=== PATIENT | male | born 1965 | race Caucasian/White ===

== ENCOUNTER 2017-06-17 10:25 | Day surgery (SDC) | payer BC ==
[~2017-06-17] VITALS: Ht 177.8 cm; Wt 82.6 kg
[~2017-06-17 10:25] MED LIST: GABA300C PO; OXYC-150 PO
[2017-06-17 11:59] LABS: BASOPHILS % (AUTO) 0.2 % (0-1); EOSINOPHILS # (AUTO) 0.3 X10'3 (0-0.9); EOSINOPHILS % (AUTO) 2.2 % (0-6); LYMPHOCYTES # (AUTO) 3.3 X10'3 (1.1-4.8); LYMPHOCYTES % (AUTO) 27.2 % (21-51); MEAN CORPUSCULAR HEMOGLOBIN 30.8 PG (27.0-31.0); MEAN CORPUSCULAR HGB CONC 34.8 % (33.0-36.5); MEAN CORPUSCULAR VOLUME 88.3 FL (78-98); MEAN PLATELET VOLUME 7.6 FL (7.4-10.4); MONOCYTES # (AUTO) 0.6 X10'3 (0-0.9); MONOCYTES % (AUTO) 4.9 % (2-12); NEUTROPHILS # (AUTO) 7.8 X10'3 (1.8-7.7); NEUTROPHILS % (AUTO) 65.5 % (42-75); PRE OP HEMATOCRIT 43.6 % (42.0-52.0); PRE OP HEMOGLOBIN 15.2 g/dL (14.0-17.9); PRE OP PLATELET COUNT 260 X10'3 (140-440); RED BLOOD COUNT 4.94 X10'6 (4.70-6.10); RED CELL DISTRIBUTION WIDTH 13.4 % (11.5-14.5)
[2017-06-17 12:10] LABS: CLARITY,URINE CLEAR (Clear); COLOR,URINE YELLOW (Yellow); GLUCOSE, URINE NEGATIVE (Neg); KETONES,URINE NEGATIVE (Neg); LEUKOCYTE ESTERASE ,URINE NEGATIVE (Neg); NITRITES, URINE NEGATIVE (Neg); OCCULT BLOOD,URINE NEGATIVE (Neg); PH,URINE 5.5 (4.8-8.0); PROTEIN,URINE NEGATIVE (Neg); UROBILINOGEN,URINE 0.2 E.U/dL (0.2-1.0)
[2017-06-17 12:16] LABS: PRE OP PROTIME 10.1 SECONDS (9.0-12.0)
[2017-06-17 12:18] LABS: UA COLLECTION TYPE CLN CATCH MIDSTREAM
[2017-06-17 12:22] LABS: ALBUMIN 3.8 G/DL (3.4-5.0); ALBUMIN/GLOBULIN RATIO 1.2 (1.1-1.5); ALKALINE PHOSPHATASE 89 IU/L (46-116); BLOOD UREA NITROGEN 16 MG/DL (7-18); BUN/CREATININE RATIO 17.8 (5.4-32.0); CALCIUM 9.2 MG/DL (8.5-10.1); CHLORIDE 106 MMOL/L (99-107); PRE OP ALT 19 U/L (30-65); PRE OP ANION GAP 8 (8-16); PRE OP AST 15 U/L (10-37); PRE OP BILIRUB, TOTAL 0.5 MG/DL (0.0-1.0); PRE OP GLUCOSE 84 MG/DL (70-104); PRE OP POTASSIUM 4.2 MMOL/L (3.4-5.1); PRE OP SODIUM 144 MMOL/L (135-145); TOTAL CARBON DIOXIDE 29.9 MMOL/L (24-32); eGFR 88 ML/MIN
[2017-06-17] MEDS ORDERED: MIRT15TA PO (12:58)
[2017-06-17] MEDS ORDERED: DIAZ10TA PO (12:58)
[2017-06-17] MEDS ORDERED: CLON2TAB PO (12:58)
[2017-06-17] MEDS ORDERED: HYDR-565 PO (12:58)
[2017-06-17] MEDS ORDERED: TRAZ-146 PO (12:58)
[2017-06-21] MEDS ORDERED: ringers solution, lacted 1,000 ML IV SCH (05:00)
[2017-06-21] MEDS ORDERED: gabapentin 300mg capsule PO ONE (05:30)
[2017-06-21] MEDS ORDERED: tranexamic acid inj. 1,000 MG in normal saline 100ml IV soln 90 ML IV ONE (05:30)
[2017-06-21] MEDS ORDERED: cefazolin/dext.iso 2gm/50ml 50 ML IV ONE (05:30)
[2017-06-21] MEDS ORDERED: famotidine 20mg tablet PO ONE (05:30)
[2017-06-21] MEDS ORDERED: albuterol 2.5 MG/3 ML nebule NEB ONE (05:30)
[2017-06-21] MEDS ORDERED: oxyCODONE SR 10mg (sust. release) tab PO ONE (05:30)
[2017-06-21] MEDS ORDERED: acetaminophen 325mg tablet PO ONE (05:30)
[2017-06-21] MEDS ORDERED: bacitracin inj 150,000 UNIT in sodium chloride irrig. sol 3,000 ML IR ONE (09:00)
== END 2017-06-17 23:59 | disposition home or self-care (01) ==
LOC: PRE-OP 10:25 → EDSTATUS 06-21 12:45
PROVIDERS: ATTEND Specialist
DX: Z53.09 Procedure and treatment not carried out because of other contraindication (principal); M17.12 Unilateral primary osteoarthritis, left knee; Z01.812 Encounter for preprocedural laboratory examination
CPT/HCPCS: 36415; 80053; 81003; 85025; 85610; 85730; 87070; J0690; J7030; J7120

== ENCOUNTER 2017-06-28 11:33 | Inpatient (IN) | payer BC ==
[2017-06-28] VITALS (20 sets, daily range): BP systolic 89–133; BP diastolic 41–92
[~2017-06-28] VITALS: Ht 177.8 cm; Wt 82.6 kg
[~2017-06-28 11:33] MED LIST changes: +CLON2TAB PO; +DIAZ10TA PO; -GABA300C PO; +HYDR-565 PO; +MIRT15TA PO; -OXYC-150 PO; +TRAZ-146 PO; +acetaminophen 325mg tablet PO ONE; +albuterol 2.5 MG/3 ML nebule NEB ONE; +bacitracin inj 150,000 UNIT in sodium chloride irrig. sol 3,000 ML IR ONE; +cefazolin/dext.iso 2gm/50ml 50 ML IV ONE; +famotidine 20mg tablet PO ONE; +gabapentin 300mg capsule PO ONE; +oxyCODONE SR 10mg (sust. release) tab PO ONE; +ringers solution, lacted 1,000 ML IV SCH; +tranexamic acid inj. 1,000 MG in normal saline 100ml IV soln 90 ML IV ONE
[2017-06-28] MEDS ORDERED: tetracaine 1% (10mg/ml) pres. free inj. ONE (13:32)
[2017-06-28] MEDS ORDERED: ROPIVAcaine 0.5% (5mg/ml) 30ml vial ONE ×2 (13:32→13:57)
[2017-06-28] MEDS ORDERED: MORPHINE SULFATE/PF 0.5 MG/ML 10ML AMPUL ONE (13:39)
[2017-06-28] MEDS ORDERED: MIDAZolam 5mg/ml 2ml vial ONE (13:39)
[2017-06-28] MEDS ORDERED: fentaNYL/PF 50MCG/1 ML 2ML syringe ONE (13:39)
[2017-06-28] MEDS ORDERED: propofol inj 20 ML IV ONE ×2 (13:59)
[2017-06-28] MEDS ORDERED: naloxone 2mg/2ml inj 2 MG in normal saline 500ml IV soln 500 ML IV PRN (14:57)
[2017-06-28] MEDS ORDERED: ringers solution, lacted 1,000 ML IV SCH (14:57)
[2017-06-28] MEDS ORDERED: proCHLORperazine 10 MG/2 ml inj IV PRN (15:00)
[2017-06-28] MEDS ORDERED: ondansetron/PF 4mg/2ml inj IV PRN ×3 (15:00→16:15)
[2017-06-28] MEDS ORDERED: diphenhydrAMINE 50 mg/ml inj IV PRN (15:00)
[2017-06-28] MEDS ORDERED: morphine 2 MG/ML inj. syringe IV PRN ×2 (15:00)
[2017-06-28] MEDS ORDERED: meperidine/PF 50mg/ml syringe IV PRN ×3 (15:00)
[2017-06-28] MEDS ORDERED: ceFAZolin 1000mg inj ONE (15:01)
[2017-06-28] MEDS ORDERED: acetaminophen 325mg tablet PO PRN (16:15)
[2017-06-28] MEDS ORDERED: magnesium hydroxide 30ml (MOM) UD suspension PO PRN (16:15)
[2017-06-28] MEDS ORDERED: oxyCODONE IR 5mg (immed. release) tablet PO PRN (16:15)
[2017-06-28] MEDS ORDERED: diphenhydrAMINE 25mg capsule PO PRN ×2 (16:15)
[2017-06-28] MEDS ORDERED: bisacodyl 10mg suppository rectal RC PRN (16:15)
[2017-06-28] MEDS: potassium cl 20mEq in 1/2 NS 1,000 ML IV SCH ×2 (18:25→23:51)
[2017-06-28] MEDS ORDERED: acetaminophen 325mg tablet PO SCH (20:00)
[2017-06-28] MEDS: celeCOXIB 100mg capsule PO SCH (20:23)
[2017-06-28] MEDS: clonazePAM 1mg tablet PO SCH (20:23)
[2017-06-28] MEDS: ascorbic acid 500mg tablet PO SCH (20:23)
[2017-06-28] MEDS: diazepam 5mg tablet PO SCH (20:24)
[2017-06-28] MEDS: mirtazapine 15mg tablet PO SCH (20:24)
[2017-06-28] MEDS: gabapentin 300mg capsule PO SCH (20:24)
[2017-06-28] MEDS: sennosides 8.6mg tablet PO SCH (20:24)
[2017-06-28] MEDS: HYDROmorphone inj. 0.5 MG/0.5 ML DISP.SYRIN IV PRN (21:38)
[2017-06-28] MEDS: cefazolin 1gm/NS 100mL 100 ML IV SCH (23:51)
[2017-06-29] MEDS: oxyCODONE IR 5mg (immed. release) tablet PO PRN ×2 (00:12→04:31)
[2017-06-29 02:00] VITALS: BP 97/62
[2017-06-29] MEDS: HYDROmorphone inj. 0.5 MG/0.5 ML DISP.SYRIN IV PRN ×2 (02:56→07:50)
[2017-06-29] MEDS ORDERED: oxyCODONE/APAP 10/325mg tablet PO PRN ×2 (05:20)
[2017-06-29] MEDS ORDERED: albuterol 2.5 MG/3 ML nebule NEB PRN (05:30)
[2017-06-29 06:22] LABS: BASOPHILS % (AUTO) 0.3 % (0-1); EOSINOPHILS # (AUTO) 0.2 X10'3 (0-0.9); EOSINOPHILS % (AUTO) 2.4 % (0-6); HEMATOCRIT 37.4 % (42.0-52.0); HEMOGLOBIN 12.8 g/dl (14.0-17.9); LYMPHOCYTES # (AUTO) 2.7 X10'3 (1.1-4.8); LYMPHOCYTES % (AUTO) 28.7 % (21-51); MEAN CORPUSCULAR HEMOGLOBIN 30.7 PG (27.0-31.0); MEAN CORPUSCULAR HGB CONC 34.2 % (33.0-36.5); MEAN CORPUSCULAR VOLUME 89.8 FL (78-98); MEAN PLATELET VOLUME 7.6 FL (7.4-10.4); MONOCYTES # (AUTO) 0.9 X10'3 (0-0.9); MONOCYTES % (AUTO) 9.5 % (2-12); NEUTROPHILS # (AUTO) 5.5 X10'3 (1.8-7.7); NEUTROPHILS % (AUTO) 59.1 % (42-75); PLATELET COUNT 211 X10'3 (140-440); RED BLOOD COUNT 4.16 X10'6 (4.70-6.10); RED CELL DISTRIBUTION WIDTH 13.3 % (11.5-14.5); WHITE BLOOD COUNT 9.3 X10'3 (4.5-11.0)
[2017-06-29 06:37] LABS: INR 1.1 INR; PROTHROMBIN TIME 11.5 SECONDS (9.0-12.0)
[2017-06-29 06:38] LABS: ANION GAP 5 (8-16); CHLORIDE 107 MMOL/L (99-107); POTASSIUM 4.5 MMOL/L (3.5-5.1); SODIUM 143 MMOL/L (135-145)
[2017-06-29 07:11] VITALS: BP 115/73
[2017-06-29] MEDS: diazepam 5mg tablet PO SCH ×2 (08:09→20:08)
[2017-06-29] MEDS: gabapentin 300mg capsule PO SCH ×3 (08:10→20:08)
[2017-06-29] MEDS: cefazolin 1gm/NS 100mL 100 ML IV SCH (08:10)
[2017-06-29] MEDS: multivitamins, therapeutics tablet PO SCH (08:10)
[2017-06-29] MEDS: ascorbic acid 500mg tablet PO SCH ×2 (08:10→19:34)
[2017-06-29] MEDS: celeCOXIB 100mg capsule PO SCH ×2 (08:10→19:34)
[2017-06-29] MEDS: clonazePAM 1mg tablet PO SCH ×2 (08:10→20:08)
[2017-06-29] MEDS: potassium cl 20mEq in 1/2 NS 1,000 ML IV SCH ×3 (08:12→23:33)
[2017-06-29] MEDS ORDERED: HYDROmorphone inj. 0.5 MG/0.5 ML DISP.SYRIN IV PRN (09:55)
[2017-06-29] MEDS ORDERED: warfarin 10mg tablet PO ONE (10:00)
[2017-06-29] MEDS: LORazepam 2 mg/ml vial IV PRN (10:07)
[2017-06-29] MEDS ORDERED: ketorolac trometh inj. 60 MG/2 ML VIAL IM ONE (10:45)
[2017-06-29] MEDS ORDERED: HYDROmorphone/NS 1 mg/ml CADD 50 ML IV SCH (10:50)
[2017-06-29] MEDS: HYDROmorphone/NS 1 mg/ml CADD 50 ML IV SCH ×6 (11:00→23:00)
[2017-06-29] MEDS ORDERED: CADD PCA waste documentation MC SCH (11:00)
[2017-06-29 12:04] VITALS: BP 119/69
[2017-06-29 18:00] VITALS: BP 126/74
[2017-06-29] MEDS: mirtazapine 15mg tablet PO SCH (20:08)
[2017-06-29] MEDS: sennosides 8.6mg tablet PO SCH (20:08)
[2017-06-29 22:00] VITALS: BP 140/71
[2017-06-30] MEDS: HYDROmorphone/NS 1 mg/ml CADD 50 ML IV SCH ×12 (01:00→23:00)
[2017-06-30] MEDS: LORazepam 2 mg/ml vial IV PRN (01:07)
[2017-06-30 07:00] VITALS: BP 134/76
[2017-06-30 07:06] LABS: BASOPHILS # (AUTO) 0.1 X10'3 (0-0.2); BASOPHILS % (AUTO) 0.5 % (0-1); EOSINOPHILS # (AUTO) 0.2 X10'3 (0-0.9); EOSINOPHILS % (AUTO) 1.7 % (0-6); HEMATOCRIT 39.3 % (42.0-52.0); HEMOGLOBIN 13.8 g/dl (14.0-17.9); LYMPHOCYTES # (AUTO) 2.3 X10'3 (1.1-4.8); LYMPHOCYTES % (AUTO) 16.6 % (21-51); MEAN CORPUSCULAR HEMOGLOBIN 31.4 PG (27.0-31.0); MEAN CORPUSCULAR HGB CONC 35.1 % (33.0-36.5); MEAN CORPUSCULAR VOLUME 89.4 FL (78-98); MEAN PLATELET VOLUME 7.3 FL (7.4-10.4); MONOCYTES # (AUTO) 1.3 X10'3 (0-0.9); MONOCYTES % (AUTO) 9.2 % (2-12); NEUTROPHILS # (AUTO) 9.8 X10'3 (1.8-7.7); PLATELET COUNT 224 X10'3 (140-440); RED BLOOD COUNT 4.39 X10'6 (4.70-6.10); WHITE BLOOD COUNT 13.6 X10'3 (4.5-11.0)
[2017-06-30 07:17] LABS: INR 1.4 INR; PROTHROMBIN TIME 14.5 SECONDS (9.0-12.0)
[2017-06-30] MEDS: celeCOXIB 100mg capsule PO SCH ×2 (07:26→21:17)
[2017-06-30] MEDS: ascorbic acid 500mg tablet PO SCH ×2 (07:26→21:17)
[2017-06-30] MEDS: gabapentin 300mg capsule PO SCH ×3 (07:26→21:17)
[2017-06-30] MEDS: multivitamins, therapeutics tablet PO SCH (07:26)
[2017-06-30] MEDS: diazepam 5mg tablet PO SCH ×2 (07:26→22:39)
[2017-06-30] MEDS: potassium cl 20mEq in 1/2 NS 1,000 ML IV SCH (08:12)
[2017-06-30] MEDS ORDERED: warfarin 4mg tablet PO ONE (10:00)
[2017-06-30 11:00] VITALS: BP 137/68
[2017-06-30] MEDS: clonazePAM 1mg tablet PO SCH ×2 (12:23→21:17)
[2017-06-30] MEDS ORDERED: acetaminophen 325mg tablet PO PRN (16:15)
[2017-06-30 18:00] VITALS: BP 108/67
[2017-06-30] MEDS: sennosides 8.6mg tablet PO SCH (21:00)
[2017-06-30 22:00] VITALS: BP 132/72
[2017-06-30] MEDS: mirtazapine 15mg tablet PO SCH (22:39)
[2017-07-01] MEDS: HYDROmorphone/NS 1 mg/ml CADD 50 ML IV SCH ×5 (01:00→09:00)
[2017-07-01 06:05] LABS: BASOPHILS % (AUTO) 0.2 % (0-1); EOSINOPHILS # (AUTO) 0.2 X10'3 (0-0.9); EOSINOPHILS % (AUTO) 1.6 % (0-6); HEMATOCRIT 37.8 % (42.0-52.0); HEMOGLOBIN 13.2 g/dl (14.0-17.9); LYMPHOCYTES # (AUTO) 2.7 X10'3 (1.1-4.8); MEAN CORPUSCULAR HEMOGLOBIN 31.5 PG (27.0-31.0); MEAN PLATELET VOLUME 7.9 FL (7.4-10.4); NEUTROPHILS # (AUTO) 7.7 X10'3 (1.8-7.7); NEUTROPHILS % (AUTO) 66.2 % (42-75); PLATELET COUNT 212 X10'3 (140-440); RED CELL DISTRIBUTION WIDTH 12.8 % (11.5-14.5); WHITE BLOOD COUNT 11.7 X10'3 (4.5-11.0)
[2017-07-01 06:16] LABS: INR 1.3 INR; PROTHROMBIN TIME 13.1 SECONDS (9.0-12.0)
[2017-07-01] MEDS: diazepam 5mg tablet PO SCH (07:23)
[2017-07-01] MEDS: ascorbic acid 500mg tablet PO SCH (07:24)
[2017-07-01] MEDS: celeCOXIB 100mg capsule PO SCH (07:24)
[2017-07-01] MEDS: multivitamins, therapeutics tablet PO SCH (07:24)
[2017-07-01] MEDS: gabapentin 300mg capsule PO SCH (07:24)
[2017-07-01 07:53] VITALS: BP 112/74
[2017-07-01] MEDS ORDERED: ASPI-1264 PO (08:04)
[2017-07-01 10:00] VITALS: BP 104/65
[2017-07-01] MEDS ORDERED: warfarin 7.5mg tablet PO ONE (10:00)
== END 2017-07-01 11:40 | disposition home health service (06) | DRG 470 ==
LOC: PAS IN 11:33 → EDSTATUS 13:15 → ORTHO 4S 17:55
PROVIDERS: ADMIT Specialist; ATTEND Specialist
PROC: 3E0T3BZ Introduction of Anesthetic Agent into Peripheral Nerves and Plexi, Percutaneous Approach (ICD-10-PCS; 2017-06-28)
PROC: 0SRD0J9 Replacement of Left Knee Joint with Synthetic Substitute, Cemented, Open Approach (ICD-10-PCS; principal; 2017-06-28 13:31)
DX: M17.12 Unilateral primary osteoarthritis, left knee (principal); D62 Acute posthemorrhagic anemia; M21.162 Varus deformity, not elsewhere classified, left knee; Z79.899 Other long term (current) drug therapy; Z87.891 Personal history of nicotine dependence
CPT/HCPCS: 36415; 73560; 80051; 85025; 85610; 94760; 97110; 97116; 97161; 97530; A6449; A6455; A7000; C1713; C1758; C1776; J0690; J1170; J1885; J2060; J2250; J2274; J2704; J2795; J3010; J7030; J7120